=== PATIENT | male | born 1995 | race Caucasian/White ===

== ENCOUNTER 2023-10-17 08:58 | Outpatient (OUT) | payer MEDICAID, SELFPAY ==
[2023-10-17 09:27] LABS: Basophils Absolute Auto 0.1 10^3/uL (0.0-0.1); Basophils Percent Auto 0.7 % (0.2-2.0); Eosinophils Absolute Auto 0.2 10^3/uL (0.0-0.7); Eosinophils Percent Auto 1.8 % (0.9-7.0); Hematocrit 45.1 % (42.0-54.0); Hemoglobin 14.6 g/dL (14.0-18.0); Immature Granulocytes Abs Auto 0.03 10^3/uL (0.00-0.03); Immature Granulocytes Pct Auto 0.3 % (0.0-0.5); Lymphocytes Absolute Auto 3.1 10^3/uL (1.2-3.8); Lymphocytes Percent Auto 27.5 % (20.5-60.0); Mean Corpuscular HGB Conc 32.4 g/dL (29.9-35.2); Mean Corpuscular Hemoglobin 27.7 pg (25.9-34.0); Mean Corpuscular Volume 85.4 fL (80.0-94.0); Mean Platelet Volume 11.1 fL (9.5-13.5); Monocytes Absolute Auto 0.8 10^3/uL (0.3-0.8); Monocytes Percent Auto 7.4 % (1.7-12.0); Neutrophils Absolute Auto 7.1 10^3/uL (1.4-6.5); Neutrophils Percent Auto 62.3 % (43.0-75.0); Platelet Count 347 10^3/uL (150-450); Red Blood Count 5.28 10^6/uL (4.70-6.10); Red Cell Distribution Width 12.3 % (11.0-15.0); White Blood Count 11.4 10^3/uL (4.0-11.0)
[2023-10-17 10:20] LABS: Estimated Average Glucose 237 mg/dL; Glycohemoglobin A1C 9.9 % (4.5-6.2)
[2023-10-17 10:57] LABS: Alanine Aminotransferase 104 U/L (16-63); Albumin Globulin Ratio 0.9; Albumin Level 3.8 g/dL (3.4-5.0); Alkaline Phosphatase 209 U/L (46-116); Anion Gap 14.6; Aspartate Amino Transferase 37 U/L (15-37); BUN Creatinine Ratio 16.5; Bilirubin Total 0.4 mg/dL (0.2-1.0); Calcium 9.8 mg/dL (8.5-10.1); Carbon Dioxide 27.6 mmol/L (21.0-32.0); Chloride 100 mmol/L (98-107); Chol HDL Ratio 4.7; Cholesterol 230 mg/dL (<=200); Estimated GFR (African America >60 (>=60); Estimated GFR (Non-African Ame >60 (>=60); Globulin 4.2 g/dL; Glucose 414 mg/dL (74-106); HDL Cholesterol 49 mg/dL (40-60); Potassium 4.2 mmol/L (3.5-5.1); Sodium 138 mmol/L (136-145); Triglycerides 138 mg/dL (<=150); VLDL CHOLESTEROL 27.6 mg/dL
== END 2023-10-17 08:59 | disposition home or self-care (01) ==
LOC: LAB 09:03
PROVIDERS: PCP Family Medicine; Visit Provider Family Medicine
DX: Z00.00 Encounter for general adult medical examination without abnormal findings (principal); E78.00 Pure hypercholesterolemia, unspecified; E10.9 Type 1 diabetes mellitus without complications
CPT/HCPCS: 36415; 80053; 80061; 83036; 85025

== ENCOUNTER 2023-10-22 11:59 | Emergency (ER) | payer MEDICAID, SELFPAY ==
[2023-10-22 12:05] VITALS: BP 115/82; PULSE 95; TEMP 36.7; O2SAT 97; BMI 23.0
--- NOTE | 2023-10-22 12:12 | ED_ITS ---
HPI - Ear Problem General Chief complaint: Ear Stated complaint: EAR PROBLEM Time Seen by Provider: 10/22/23 12:07 Source: patient Mode of arrival: walk-in Limitations: no limitations History of Present Illness HPI Narrative: The patient comes to the ER to have his left ear cleaned from wax he had this problem before, he denies any other complaint he mentioned that he just feels that there is more wax in his left ear Related Data Home Medications ?Medication ?Instructions ?Recorded ?Confirmed insulin detemir U-100 100 unit/mL 36 unit subcut BEDTIME 10/22/23 10/22/23 (3 mL) subcutaneous pen (Levemir FlexPen) Allergies Allergy/AdvReac Type Severity Reaction Status Date / Time No Known Drug Allergies Allergy Verified 10/22/23 12:04 Review of Systems ROS Status of ROS 10 or more systems reviewed and unremark able except as noted in history and below Exam Narrative Exam Narrative: Nurses notes and vital signs reviewed and patient is not hypoxic. General: Well-appearing and in no apparent distress. Skin: Warm, dry, no pallor noted. No rash. Head: Normocephalic, atraumatic. Neck: Supple, non-tender. Eye: Pupils are equal, round and EOMI. No scleral icterus. Ears, bilateral ear examination showed that the patient have excess wax there was no signs of inflammation or any infection Cardiovascular: Regular Rate and Rhythm without murmur, gallop or rub. Respiratory: No accessory muscle use or respiratory distress. Lungs are clear to auscultation, no wheezing, rales or rhonchi Chest Wall: no tenderness Back: No midline thoracic or lumbar vertebral tenderness. No CVA tenderness Musculoskeletal: normal ROM, no calf or popliteal tenderness, no lower extremity edema/swelling GI: Abdomen is soft, non-distended. Normal bowel sounds. No masses appreciated. No tenderness to palpation. No rebound, guarding, or rigidity noted. Neurological: A&O x4. No cranial nerve dysfunction observed. No truncal ataxia. Moves all extremities. Sensation intact. Psychiatric: Cooperative and interactive. Normal mood and affect. Constitutional Vital Signs, click to edit/add: Last Vital Signs Temp 98.0 F 10/22/23 12:05 Pulse 95 H 10/22/23 12:05 Resp 16 10/22/23 12:05 BP 115/82 10/22/23 12:05 Pulse Ox 97 10/22/23 12:05 O2 Del Method Room Air 10/22/23 12:05 Course Vital Signs Vital signs: Vital Signs Temperature 98.0 F 10/22/23 12:05 Pulse Rate 95 H 10/22/23 12:05 Respiratory Rate 16 10/22/23 12:05 Blood Pressure 115/82 10/22/23 12:05 Pulse Oximetry 97 10/22/23 12:05 Oxygen Delivery Method Room Air 10/22/23 12:05 Temperature 98.0 F 10/22/23 12:05 Pulse Rate 95 H 10/22/23 12:05 Respiratory Rate 16 10/22/23 12:05 Blood Pressure 115/82 10/22/23 12:05 Pulse Oximetry 97 10/22/23 12:05 Oxygen Delivery Method Room Air 10/22/23 12:05 Medical Decision Making MDM Narrative Medical decision making narrative: The patient had his left ear irrigated and cleaned he was discharged home to continue supportive care at home Patient instructed about decreasing cleaning the ear with Q-tips The patient is to follow up with primary care physician in next 2-3 days or to return to the emergency department should any of the signs or symptoms worsen or new symptoms develop. The patient agrees with the following Diagnosis and Treatment plan and the patient will be discharged home. Discharge Plan Discharge Stand Alone Forms: Portal Instructions Chief Complaint: Ear Clinical Impression: Excess ear wax Qualifiers: Laterality: left Qualified Code(s): H61.22 - Impacted cerumen, left ear Patient Disposition: Home, Self-Care Time of Disposition Decision: 12:12 Condition: Good Prescriptions / Home Meds: No Action Levemir FlexPen 100 unit/mL (3 mL) insulin pen 36 unit SUBCUT BEDTIME Print Language: Lithuanian Instructions: Carbamide Peroxide (Into the ear) Referrals: Bala Horne MD [Primary Care Provider] - 1 week
== END 2023-10-22 12:37 | disposition home or self-care (01) ==
PROVIDERS: Emergency Provider Emergency Medicine; PCP Family Medicine
DX: H61.22 Impacted cerumen, left ear (principal)
CPT/HCPCS: 69209; 99283

== ENCOUNTER 2023-10-24 10:51 | Outpatient (OUT) | payer MEDICAID, SELFPAY ==
[2023-10-25 05:12] LABS: HBsAg Screen Negative (Negative); HCV Ab Non Reactive (Non Reactive); Hep A Ab, IgM Negative (Negative); Hep B Core Ab, IgM Negative (Negative)
== END 2023-10-24 10:52 | disposition home or self-care (01) ==
LOC: LAB 10:53
PROVIDERS: PCP Family Medicine; Visit Provider Family Medicine
DX: R74.8 Abnormal levels of other serum enzymes (principal)
CPT/HCPCS: 36415; 80074

== ENCOUNTER 2024-10-21 11:35 | Outpatient (OUT) | payer MEDICAID, SELFPAY ==
[2024-10-21 12:11] LABS: Basophils Absolute Auto 0.1 10^3/uL (0.0-0.1); Basophils Percent Auto 0.9 % (0.2-2.0); Eosinophils Absolute Auto 0.3 10^3/uL (0.0-0.7); Eosinophils Percent Auto 3.2 % (0.9-7.0); Hematocrit 45.1 % (42.0-54.0); Hemoglobin 14.7 g/dL (14.0-18.0); Immature Granulocytes Abs Auto 0.03 10^3/uL (0.00-0.03); Immature Granulocytes Pct Auto 0.3 % (0.0-0.5); Lymphocytes Absolute Auto 2.8 10^3/uL (1.2-3.8); Lymphocytes Percent Auto 29.4 % (20.5-60.0); Mean Corpuscular HGB Conc 32.6 g/dL (29.9-35.2); Mean Corpuscular Hemoglobin 27.4 pg (25.9-34.0); Mean Corpuscular Volume 84.1 fL (80.0-94.0); Mean Platelet Volume 10.8 fL (9.5-13.5); Monocytes Absolute Auto 0.9 10^3/uL (0.3-0.8); Monocytes Percent Auto 9.5 % (1.7-12.0); Neutrophils Absolute Auto 5.4 10^3/uL (1.4-6.5); Neutrophils Percent Auto 56.7 % (43.0-75.0); Platelet Count 321 10^3/uL (150-450); Red Blood Count 5.36 10^6/uL (4.70-6.10); Red Cell Distribution Width 12.8 % (11.0-15.0); White Blood Count 9.5 10^3/uL (4.0-11.0)
[2024-10-21 12:50] LABS: Estimated Average Glucose 203 mg/dL; Glycohemoglobin A1C 8.7 % (4.5-6.2)
[2024-10-21 13:03] LABS: Alanine Aminotransferase 88 U/L (16-63); Albumin Globulin Ratio 1.1; Albumin Level 3.6 g/dL (3.4-5.0); Alkaline Phosphatase 153 U/L (46-116); Aspartate Amino Transferase 30 U/L (15-37); BUN Creatinine Ratio 13.3; Bilirubin Total 0.5 mg/dL (0.2-1.0); Carbon Dioxide 29.3 mmol/L (21.0-32.0); Chloride 103 mmol/L (98-107); Chol HDL Ratio 3.7; Cholesterol 162 mg/dL (<=200); Estimated GFR (African America >60 (>=60 mL/min/1.73m^2); Estimated GFR (Non-African Ame >60 (>=60 mL/min/1.73m^2); Free T3 3.03 pg/mL (2.18-3.98); Globulin 3.4 g/dL; Glucose 287 mg/dL (74-106); HDL Cholesterol 44 mg/dL (40-60); LDL Cholesterol Calculated 94.4 mg/dL; Potassium 4.3 mmol/L (3.5-5.1); Sodium 139 mmol/L (136-145); Thyroid Stimulating Hormone 1.125 uIU/mL (0.358-3.740); Triglycerides 118 mg/dL (<=150); VLDL CHOLESTEROL 23.6 mg/dL
== END 2024-10-21 11:36 | disposition home or self-care (01) ==
LOC: LAB 11:36
PROVIDERS: PCP Family Medicine; Visit Provider Family Medicine
DX: E78.00 Pure hypercholesterolemia, unspecified (principal); E10.9 Type 1 diabetes mellitus without complications; E03.9 Hypothyroidism, unspecified; I10 Essential (primary) hypertension; R53.83 Other fatigue
CPT/HCPCS: 36415; 80053; 80061; 83036; 84436; 84443; 84481; 85025